=== PATIENT | female | born 1945 | race American Indian/Alaskan Native ===

== ENCOUNTER 2017-05-12 11:50 | Day surgery (SDC) | payer MEDICARE ==
[2017-05-12 15:21] VITALS: BP 151/82
--- NOTE | 2017-05-12 15:29 | History and Physical Report ---
History of Present Illness Date of examination: 05/12/17 Chief complaint: neck mass Medications and Allergies Allergies Allergy/AdvReac Type Severity Reaction Status Date / Time No Known Allergies Allergy Verified 07/19/14 14:17 Home Medications Medication Instructions Recorded Confirmed Last Taken Type Amlodipine Besylate 1 tab PO DAILY 11/07/13 05/12/17 05/11/17 History 10mg Carvedilol 1 tab PO BID 11/07/13 05/12/17 05/11/17 History 6.25mg Hydrochlorothiazide [HCTZ] 1 tab PO DAILY 11/07/13 05/12/17 05/11/17 History 1 tab Losartan Potassium 1 tab PO DAILY 11/07/13 05/12/17 05/11/17 History 1 tab metFORMIN XR [Glucophage XR] 1 tab PO BID 11/07/13 05/12/17 05/11/17 History 500mg Atorvastatin [Lipitor] 1 tab PO DAILY 07/19/14 05/12/17 05/10/17 History 40mg Ergocalciferol (Vitamin D2) 1.25 mg PO QWEEK 07/19/14 05/12/17 05/11/17 History [Vitamin D2] 1.25mg Nortriptyline [Pamelor] 100 mg PO QHS 07/19/14 05/12/17 05/11/17 History 100mg Exam Vital Signs Temp Pulse Resp BP Pulse Ox 98.2 F 74 20 137/82 96 05/12/17 12:49 05/12/17 12:49 05/12/17 12:49 05/12/17 12:49 05/12/17 12:49
--- NOTE | 2017-05-12 15:30 | Procedure Note ---
Date of procedure: 05/12/17 Pre-op diagnosis: thyroid mass Post-op diagnosis: same Procedure: u/s guided bx lt side Anesthesia: local Surgeon: ORI BAXTER Estimated blood loss: none Pathology: list (thyroid asp/bx) Specimen disposition: to lab Condition: stable Disposition: observation
--- NOTE | 2017-05-12 15:41 | Ultrasound Report ---
Ultrasound-guided left thyroid biopsy: Patient presents with a palpable mass in her left neck. According to the patient this may be slightly larger but has been present for several years. The right thyroid lobe measures 19 x 21 x 62 mm. There is a well-circumscribed slightly inhomogeneous but relatively isoechoic nodule in the inferior lobe measuring 2 cm. The remainder of the lobe is generally echogenically unremarkable. The left lobe measures 39 x 55 x 91 mm. The lobe is diffusely inhomogeneous with scattered areas of a lucency consistent with cysts and no clearly definable mass. No calcifications noted. Under ultrasound imaging a relatively solid area of the tissue in the left lobe is identified for sampling. The skin was cleansed and local anesthesia with 1% lidocaine injected. Samples were obtained using a 25-gauge needle with aspiration as well as a biopsy with a Rotex needle. There were no patient complications. The attending pathologist indicated that adequate sampling had been obtained. Patient was discharged after brief observation period
== END 2017-05-12 15:50 | disposition home or self-care (01) ==
LOC: OPU 11:50 → EDSTATUS 12:00 → OPU 15:50
PROVIDERS: ATTEND Otolaryngology
DX: E07.89 Other specified disorders of thyroid (principal); E11.9 Type 2 diabetes mellitus without complications; I10 Essential (primary) hypertension; Z79.899 Other long term (current) drug therapy; Z79.84 Long term (current) use of oral hypoglycemic drugs
CPT/HCPCS: 60100; 76942; 82962; 88112; 88172; 88173